=== PATIENT | male | born 1965 | race Caucasian/White ===

== ENCOUNTER 2023-01-15 09:16 | Emergency (ER) | payer BC, OTHER ==
[2023-01-15] MEDS: Sodium Chloride 0.9% 1,000 ML IOSS ONE (09:23)
[2023-01-15] MEDS: Diphtheria,Pertussis(Acell),Tetanus Vaccine 0.5 ML Syringe IM ONE (09:44)
[2023-01-15] MEDS: Tranexamic Acid IN NACL,ISO-OS 1,000 MG in Premix Bag 1 BAG IV ONE ×2 (09:45)
[2023-01-15 10:48] LABS: BASOPHILS ABSOLUTE AUTO 0.04 10^3/uL (0.00-0.10); BASOPHILS PERCENT AUTO 0.2 % (0.0-1.0); EOSINOPHILS ABSOLUTE AUTO 0.27 10^3/uL (0.10-0.30); EOSINOPHILS PERCENT AUTO 1.7 % (1.0-3.0); HEMATOCRIT 37.7 % (40.0-52.0); HEMOGLOBIN 12.4 g/dL (13.0-17.0); IMMATURE GRAN ABSOLUTE AUTO 0.13 10^3/uL (0.00-0.50); IMMATURE GRAN PERCENT AUTO 0.8 % (0.0-5.0); LYMPHOCYTES ABSOLUTE AUTO 4.25 10^3/uL (1.00-4.00); LYMPHOCYTES PERCENT AUTO 26.3 % (20.0-40.0); MEAN CORPUSCULAR HEMOGLOBIN 31.6 pg (27.0-31.0); MEAN CORPUSCULAR HGB CONC 32.9 g/dL (32.0-36.0); MEAN CORPUSCULAR VOLUME 95.9 fL (82.0-92.0); MEAN PLATELET VOLUME 13.3 fL (7.4-10.4); MONOCYTES ABSOLUTE AUTO 0.66 10^3/uL (0.10-0.80); MONOCYTES PERCENT AUTO 4.1 % (2.0-8.0); NEUTROPHILS PERCENT AUTO 66.9 % (50.0-70.0); PLATELET COUNT,PLT 108 10^3/uL (150-400); RED BLOOD CELL COUNT 3.93 10^6/uL (4.50-6.00); RED CELL DISTRIBUTION WIDTH 12.3 % (11.5-14.5); WHITE BLOOD CELL COUNT,WBC 16.15 10^3/uL (5.00-10.00)
[2023-01-15 10:49] LABS: ALANINE AMINOTRANSFERASE,ALT 36 U/L (14-63); ALKALINE PHOSPHATASE 143 U/L (46-116); ANION GAP 19.5 mmol/L (5-15); ASPARTATE AMNIOTRANSFERASE,AST 61 U/L (15-37); BILIRUBIN TOTAL 0.5 mg/dL (0.2-1.0); BLOOD UREA NITROGEN,BUN 21 mg/dL (7-18); CALCIUM 7.8 mg/dL (8.7-10.3); CARBON DIOXIDE,CO2 17.7 mmol/L (21.0-32.0); CHLORIDE,CL 103 mmol/L (98-107); CREATININE 1.54 mg/dL (0.51-1.17); ESTIMATED GFR 52 mL/min (>=60); GLUCOSE RANDOM 420 mg/dL (70-140); PROTEIN TOTAL,TP 5.4 g/dL (6.4-8.2); SODIUM,NA 135 mmol/L (136-145)
[2023-01-15 10:50] LABS: POTASSIUM,K 5.2 mmol/L (3.5-5.1)
[2023-01-15] MEDS: Sodium Chloride 0.9% 1,000 ML ONE (13:40)
[2023-01-15] MEDS: ceFAZolin 1 GM Vial ONE (13:40)
[2023-01-15] MEDS: ceFAZolin 1 GM Vial IVPUSH ONE (14:11)
== END 2023-01-15 22:22 | disposition expired ==
LOC: KA.ED 09:16
DX: I46.9 Cardiac arrest, cause unspecified (principal); S06.9X0A Unspecified intracranial injury without loss of consciousness, initial encounter; S01.00XA Unspecified open wound of scalp, initial encounter; E78.00 Pure hypercholesterolemia, unspecified; I10 Essential (primary) hypertension; E66.9 Obesity, unspecified; Z79.899 Other long term (current) drug therapy; Z23 Encounter for immunization; Z68.41 Body mass index [BMI] 40.0-44.9, adult; W22.09XA Striking against other stationary object, initial encounter
CPT/HCPCS: 31500; 36415; 71045; 80053; 85025; 90471; 90715; 96374; 99285; 99285-25; J3490; J7030; Q3014